=== PATIENT | female | born 1960 | race Two or more races ===

== ENCOUNTER 2019-03-30 12:57 | Day surgery (SDC) | payer BC ==
[2019-03-30] MEDS ORDERED: PROPOFOL 40 ML (15:45)
[2019-03-30] MEDS ORDERED: LIDOCAINE 2% (SDV) 5 ML INJ (15:45)
[2019-03-30] MEDS ORDERED: PROPOFOL 200 MG INJ (15:45)
[2019-03-30] MEDS ORDERED: FENTAnyl 50 MCG/ML VIAL (15:46)
== END 2019-03-30 16:37 | disposition home or self-care (01) ==
LOC: GIL 12:57
DX: Z12.11 Encounter for screening for malignant neoplasm of colon (principal); K29.30 Chronic superficial gastritis without bleeding; K64.8 Other hemorrhoids; I10 Essential (primary) hypertension
CPT/HCPCS: 43239; 88305; 88312